=== PATIENT | female | born 1960 | race Caucasian/White ===

== ENCOUNTER 2020-05-12 08:05 | Outpatient (REF) | payer OTHER, MEDICAID, SELFPAY ==
--- NOTE | 2020-05-12 08:14 | XR_ITS ---
EXAMINATION: CR X-RAY SHOULDER 4 VIEW BILATERAL CLINICAL INFORMATION: Bilateral shoulder pain. COMPARISON: None TECHNIQUE: 4 views each of the bilateral shoulders were obtained. FINDINGS: There is no acute fracture or dislocation. The glenohumeral and acromio clavicular joints are intact. The soft tissues are unremarkable. XR/XR shoulder RT min 2V IMPRESSION: Unremarkable bilateral shoulders.
--- NOTE | 2020-05-12 08:14 | XR_ITS ---
EXAMINATION: CR X-RAY SHOULDER 4 VIEW BILATERAL CLINICAL INFORMATION: Bilateral shoulder pain. COMPARISON: None TECHNIQUE: 4 views each of the bilateral shoulders were obtained. FINDINGS: There is no acute fracture or dislocation. The glenohumeral and acromio clavicular joints are intact. The soft tissues are unremarkable. XR/XR shoulder LT min 2V IMPRESSION: Unremarkable bilateral shoulders.
[2020-05-12 08:57] LABS: Hematocrit 42.7 % (37-47); Hemoglobin 13.8 g/dl (12.0-16.0); Mean Corpuscular HGB Conc 32.3 g/dl (31.0-35.0); Mean Corpuscular Hemoglobin 29.6 pg (27.0-33.0); Mean Corpuscular Volume 91.4 fL (80-98); Mean Platelet Volume 9.7 fL (9.4-12.3); Platelet Count 310 X10*3/uL (160-400); Red Blood Count 4.67 X10*6/uL (4.20-5.50); Red Cell Distribution Width 12.7 % (11.0-16.0); White Blood Count 6.7 X10*3/uL (4.8-10.8)
[2020-05-12 09:21] LABS: Anion Gap 11 (12-20); Blood Urea Nitrogen 16 mg/dL (9-16); Calcium 9.5 mg/dL (8.4-10.2); Carbon Dioxide 28 mmol/L (22-29); Chloride 104 mmol/L (96-108); Cholesterol 293 mg/dL; Estimated Glomerular Filt Rate > 60; Glucose Random 103 mg/dL (60-115); HDL Cholesterol 59 mg/dL; LDL Cholesterol Calculated 199 mg/dl; Potassium 4.8 mmol/l (3.3-5.1); Sodium 138 mmol/L (135-145); Triglycerides 179 mg/dL
[2020-05-12 09:41] LABS: Thyroid Stimulating Hormone 1.21 uIU/mL (0.32-4.0)
== END 2020-05-12 08:06 | disposition home or self-care (01) ==
LOC: HO.LAB 08:05
PROVIDERS: PCP Internal Medicine; Visit Provider General Practice
DX: M25.511 Pain in right shoulder (principal); M25.512 Pain in left shoulder; E78.5 Hyperlipidemia, unspecified
CPT/HCPCS: 36415; 73030; 80048; 80061; 84443; 85027

== ENCOUNTER 2023-06-08 15:28 | Outpatient (REF) | payer OTHER, SELFPAY ==
--- NOTE | ~2023-06-08 | MM_ITS ---
EXAMINATION: MM SCREENING DIGITAL BREAST TOMOSYNTHESIS, BILATERAL WITH BREAST IMPLANTS CLINICAL INFORMATION: Screening. Asymptomatic. COMPARISON: Mammography: This study is compared with prior mammograms dating back to 2017. TECHNIQUE: Digital mammography is performed in craniocaudal and mediolateral oblique views along with computer-aided detection (CAD). Digital breast tomosynthesis is performed in implant-displaced craniocaudal and implant-displaced mediolateral oblique views along with computer-aided detection (CAD). Synthesized 2D images are generated from the tomosynthesis. FINDINGS: There are scattered areas of fibroglandular density (ACR BI-RADS breast composition Category b). There are mammographically intact, bilateral retropectoral breast implants. There are no significant masses, abnormal calcifications, or other abnormalities. There are few, bilateral benign calcifications which have been previously evaluated with magnification imaging in 2018. MM/MM tomosynthesis screen imp BI IMPRESSION: No mammographic evidence of malignancy. ASSESSMENT: BI-RADS BI-RADS 2 - Benign Findings RECOMMENDATION: Routine annual mammography screening. 1 year F/U This patient's information was entered into a reminder system with a target due date for their next mammogram.
== END 2023-06-08 15:29 | disposition home or self-care (01) ==
LOC: HO.MAMMO 15:28
PROVIDERS: PCP Internal Medicine; Visit Provider Internal Medicine
DX: Z12.31 Encounter for screening mammogram for malignant neoplasm of breast (principal)
CPT/HCPCS: 77063; 77067

== ENCOUNTER → 2023-06-08 15:45 | Outpatient (BNV) | payer OTHER, SELFPAY | PROVIDERS: PCP Internal Medicine; Visit Provider Radiology Diagnostic Radiology | DX: Z12.31 Encounter for screening mammogram for malignant neoplasm of breast (principal) | CPT/HCPCS: 77063; 77067 ==

== ENCOUNTER 2023-08-10 07:58 | Outpatient (REF) | payer OTHER, SELFPAY ==
[2023-08-10 12:08] LABS: Alanine Aminotransferase 26 U/L (0-31); Albumin Level 4.1 g/dL (3.5-5.0); Alkaline Phosphatase 61 U/L (39-117); Anion Gap 11 (12-20); Aspartate Amino Transferase 29 U/L (5-31); Bilirubin Total 0.5 mg/dL (0.0-1.0); Blood Urea Nitrogen 18 mg/dL (9-16); Calcium 9.4 mg/dL (8.4-10.2); Carbon Dioxide 27 mmol/L (22-29); Chloride 106 mmol/L (96-108); Cholesterol 265 mg/dL (<200); Estimated Glomerular Filt Rate > 60; Glucose Random 93 mg/dL (60-115); HDL Cholesterol 66 mg/dL (>40); LDL Cholesterol Calculated 175 mg/dL (<100); Potassium 4.6 mmol/L (3.3-5.1); Sodium 139 mmol/L (135-145); Total Protein 7.4 g/dL (6.5-8.0); Triglycerides 123 mg/dL (<150)
[2023-08-10 12:25] LABS: TSH reflex Free T4 1.86 uIU/mL (0.32-4.0); Vitamin D 25-OH Total 51.1 ng/mL (>30)
[2023-08-10 12:34] LABS: Reflex LDLD? No
== END 2023-08-10 07:59 | disposition home or self-care (01) ==
LOC: HO.HHCL 07:58
PROVIDERS: Visit Provider Internal Medicine
DX: E55.9 Vitamin D deficiency, unspecified (principal); M25.541 Pain in joints of right hand; M25.542 Pain in joints of left hand; E78.2 Mixed hyperlipidemia
CPT/HCPCS: 36415; 80053; 80061; 82306; 84443

== ENCOUNTER 2024-02-18 08:37 | Outpatient (REF) | payer OTHER, SELFPAY ==
[2024-02-18 11:49] LABS: Cholesterol 217 mg/dL (<200); HDL Cholesterol 62 mg/dL (>40); LDL Cholesterol Calculated 133 mg/dL (<100); Triglycerides 111 mg/dL (<150)
[2024-02-18 13:49] LABS: Reflex LDLD? No
== END 2024-02-18 08:38 | disposition home or self-care (01) ==
LOC: HO.HHCL 08:37
PROVIDERS: Visit Provider Internal Medicine
DX: E78.2 Mixed hyperlipidemia (principal)
CPT/HCPCS: 36415; 80061

== ENCOUNTER 2024-04-09 09:03 | Outpatient (REF) | payer OTHER, SELFPAY ==
--- NOTE | ~2024-04-09 | XR_ITS ---
EXAMINATION: XR HAND, RIGHT CLINICAL INFORMATION: Pain and weakness. COMPARISON: None available. TECHNIQUE: PA, lateral, and oblique views of the right hand. FINDINGS: Bony mineralization is normal. There is moderately severe arthritic change of the third distal interphalangeal joint, with joint space narrowing, mild angulation and periarticular calcifications. There is mild narrowing of the fourth and fifth distal interphalangeal joints. Minimal degenerative change is seen of the second and third distal interphalangeal joints. Small marginal erosions are noted of the second and third metacarpophalangeal joints. The proximal and distal carpal rows are intact. No fracture or dislocation is seen. There is mild soft tissue swelling of the fingers, without soft tissue gas or foreign body noted. XR/XR hand LT min 3V IMPRESSION: There are arthritic changes of the distal interphalangeal joints and of the second and third metacarpophalangeal joints. Small marginal erosions raise the possibility of rheumatoid arthritis, erosive osteoarthritis, psoriasis and gout. Please correlate clinically. No fracture or dislocation is seen. EXAMINATION: XR HAND, LEFT CLINICAL INFORMATION: Pain and weakness. COMPARISON: None available. TECHNIQUE: PA, lateral, and oblique views of the left hand. FINDINGS: Bony mineralization is normal. There is moderate to marked arthritic change of the second through fifth distal interphalangeal joints, with joint space narrowing and periarticular calcifications. There is mild angulation of the third distal interphalangeal joint, with a small central erosion. There is mild narrowing of the fifth proximal interphalangeal joint. The proximal and distal carpal rows are intact. There is no fracture or dislocation. There is mild soft tissue swelling of the fingers, without soft tissue gas or foreign body noted. IMPRESSION: As with the contralateral side, there are arthritic changes of several left interphalangeal joints, with a small central erosion at the third distal interphalangeal joint. No fracture or dislocation is seen. Electronically signed by: Jc Thomas MD 04/10/2024 11:33 AM EST
--- NOTE | ~2024-04-09 | XR_ITS ---
EXAMINATION: XR HAND, RIGHT CLINICAL INFORMATION: Pain and weakness. COMPARISON: None available. TECHNIQUE: PA, lateral, and oblique views of the right hand. FINDINGS: Bony mineralization is normal. There is moderately severe arthritic change of the third distal interphalangeal joint, with joint space narrowing, mild angulation and periarticular calcifications. There is mild narrowing of the fourth and fifth distal interphalangeal joints. Minimal degenerative change is seen of the second and third distal interphalangeal joints. Small marginal erosions are noted of the second and third metacarpophalangeal joints. The proximal and distal carpal rows are intact. No fracture or dislocation is seen. There is mild soft tissue swelling of the fingers, without soft tissue gas or foreign body noted. XR/XR hand RT min 3V IMPRESSION: There are arthritic changes of the distal interphalangeal joints and of the second and third metacarpophalangeal joints. Small marginal erosions raise the possibility of rheumatoid arthritis, erosive osteoarthritis, psoriasis and gout. Please correlate clinically. No fracture or dislocation is seen. EXAMINATION: XR HAND, LEFT CLINICAL INFORMATION: Pain and weakness. COMPARISON: None available. TECHNIQUE: PA, lateral, and oblique views of the left hand. FINDINGS: Bony mineralization is normal. There is moderate to marked arthritic change of the second through fifth distal interphalangeal joints, with joint space narrowing and periarticular calcifications. There is mild angulation of the third distal interphalangeal joint, with a small central erosion. There is mild narrowing of the fifth proximal interphalangeal joint. The proximal and distal carpal rows are intact. There is no fracture or dislocation. There is mild soft tissue swelling of the fingers, without soft tissue gas or foreign body noted. IMPRESSION: As with the contralateral side, there are arthritic changes of several left interphalangeal joints, with a small central erosion at the third distal interphalangeal joint. No fracture or dislocation is seen. Electronically signed by: Jc Thomas MD 04/10/2024 11:33 AM EST
== END 2024-04-09 09:04 | disposition home or self-care (01) ==
LOC: HO.HHCX 09:03
PROVIDERS: Visit Provider Internal Medicine
DX: M19.041 Primary osteoarthritis, right hand (principal); M19.042 Primary osteoarthritis, left hand; R35.1 Nocturia
CPT/HCPCS: 73130

== ENCOUNTER 2024-08-14 07:38 | Outpatient (RCR) | payer MEDICAID, SELFPAY ==
--- NOTE | 2024-07-17 15:23 | MHC.OT.EP ---
[address] [phone] Occupational Therapy Plan of Care Patient Name: Heather Downs Date of Evaluation: 07/17/24 Diagnosis: Bilateral hand arthritis Pain Location: R hand (primarily in DIP joints) 5/10 L hand (DIP joints) 3/10 Pain Score: 5 Pain Scale Used: Numeric (0 - 10) Aggravating Factors: Heavy cleaning, lifting Alleviating Factors: Rest, medication Assessment: Heather is a 63 y/o female referred to OT for bilateral hand arthritis. Patient presents with a five-year history of worsening bilateral hand pain, primarily in the DIP joints, with associated morning stiffness, arthritic nodules, and ulnar deviation of the middle finger DIP joints. Symptoms are consistent with osteoarthritis, as confirmed by imaging. Career Advisor strength is significantly reduced (R: 12#, L: 15#), impacting functional tasks such as grasping objects and fine motor coordination. The QuickDASH score of 54.5% indicates moderate to severe functional limitations. Pt would benefit from skilled OT to address limitations and improve hand function. Frequency and Duration: The patient will be seen 2x/wk for 4 weeks Short Term Goals: Decrease pain <2/10 in DIP joints through manual therapy, joint protection strategies, and thermal modalities IND w/ joint protection techniques and activity modification to minimize stress on affected joints Editor School Photograph Goals: Pain free with homemaking tasks Improve paper handler strength to at least 20# bilaterally to restore functional hand use Prevent further progression of deformity and maintain joint mobility and dexterity for daily activities Reduce QuickDASH score <25% Treatment Plan: Therapeutic Exercise Therapeutic Activity Home Exercise Program Patient Education ADL Training Paraffin Fluidotherapy MHP Joint Mobilization Soft Tissue Mobilization Electronically Signed By: An Cutler MS OTR/L Please Sign and return to therapist. Thank you once again for your referral.
--- NOTE | 2024-08-14 08:18 | MHC.OT.DC ---
[address] [phone] F: [phone] Occupational Therapy Discharge Note Patient Name: Heather Downs Provider: Mary Sanford Diagnosis: Bilateral hand arthritis Date of Surgery: Date of Evaluation: 07/17/24 Date of Discharge: Treatments to Date: 8 Cancellations to Date: No Shows to Date: Discharge Status: Achieved Goals Independent with HEP Discharge Summary: Pt tolerated therapy well today; she reports she is and will continue to be compliant w/ HEP and jt. protection techniques Electronically Signed By: Deb Mckinney OTR/L Reviewed/agree with student documentation: Therapist: Please Sign and return to therapist, thank you for your referral.
== END 2024-08-14 08:19 | disposition home or self-care (01) ==
LOC: HO.OT 07:38
PROVIDERS: PCP Internal Medicine; Visit Provider Internal Medicine
DX: M19.041 Primary osteoarthritis, right hand (principal); M19.042 Primary osteoarthritis, left hand
CPT/HCPCS: 97035; 97110; 97140; 97165; 97535

== ENCOUNTER 2024-08-19 10:56 | Outpatient (REF) | payer MEDICAID, SELFPAY ==
[2024-08-19 13:14] LABS: MANUAL DIFF FLAG NO
--- OUTSIDE RECORDS SUMMARY | 2024-08-19 13:20 | XMS_ITS | Referral Summary ---
Author Organization [facility] Address [address] [place] [address] Care Team Providers Care Cake Icer Name Role Phone aMry Sanford Primary Care Provider +1- [phone] Allergies No known active allergies Medications atorvastatin (LIPITOR) 40 mg tablet Take 40 mg by mouth once a day. Active calcium carbonate (TUMS) 200 mg calcium (500 mg) chewable tablet Chew and swallow 1 tablet by mouth once a day. Active ergocalciferol (VITAMIN D2) 1,250 mcg (50,000 unit) capsule Take 50,000 Units by mouth once a week. Active Active Problems Problem Noted Date Diagnosed Date OAB (overactive bladder) 07/07/2021 Mixed stress and urge urinary incontinence 07/07 Hypercholesteremia 01/03/2021 Uterine cancer 01/03/2021 Social History Tobacco Use Types Packs/Day Years Used Date Smoking Tobacco: Former Cigarettes 0.3 20 1 - 2015 Smokeless Tobacco: Never Alcohol Use Standard Drinks/Week Comments Not Currently 0 (1 standard drink = 0.6 oz pur e alcohol) Comments Unknown Sex and Gender Information Value Date Recorded Sex Assigned at Not on file Legal Sex Female 2:57 PM EDT Gender Identity Not on file Sexual Orientation Not on file 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
--- OUTSIDE RECORDS SUMMARY | 2024-08-19 13:20 | XMS_ITS | Encounter Summary ---
Author Organization [employer] Address [address] [place] [address] Care Team Providers Care Software Educator Name Role Phone Mary Sanford MD Primary Care Provider + Reason for Visit * Reason Comments Med Refill Encounter Details Date Type Department Care Team (Late st Contact Info) Description 04/01/2023 Refill [facility] [address] [place], [place] [phone] Mary Sanford MD [address] [place], [place] [phone] Acute pain of left knee; Lateral epicondylitis of left elbow Social History Tobacco Use Types Packs/Day Years Used Date Smoking Tobacco: Every Day Cigarettes Passive Smoke Exposure: Never Smokeless Tobacco: Never Alcohol Use Standard Drinks/Week Comments Not Currently 0 (1 standard drink = 0.6 oz pur e alcohol) Housing Stability Answer Date Recorded What is your housing situation today? I have óscar reza 02/26/[address] you li ve. Do you have problems with any of the following? None of the above 02/26/2023 Food Insecurity Answer Date Recorded Within the past 12 months, y ou worried that your food would run out before you got money to buy more: Never True 02/26/2023 Within the past 12 months,th e food you bought just didn't last and you didn't have enough money to get more: Never True Transportation Answer Date Recorded In the past 12 months, has l ack of transportation kept you from medical appts, meetings, work or from getting things needed for daily living? No 02/26/2023 Utilities Answer Date Recorded In the past 12 months, has t he electric, gas, oil or water company threatened to shut off services in your home? No 02/26/2023 Depression Answer Date Recorded Patient Health Questionnaire-2 Score 0 07/07/2022 Comments Unknown Sex and Gender Information Value Date Recorded Sex Assigned at Female 03/13/2022 10:31 AM EDT Legal Sex Female 10:31 AM EDT Gender Identity Female 03/13/2022 10:31 AM EDT Sexual Orientation Choose not to disclose 2021 10:31 AM EDT documented as of this encounter Plan of Treatment Upcoming Encounters Date Type Department Care Team (Late st Contact Info) Description 02/24/2025 1:00 PM EDT Office Visit [facility] [address] [place] [address] Lakesha Valenzuela [address] [place] [address] documented as of this encounter Visit Diagnoses Diagnosis Acute pain of left knee Lateral epicondylitis of left elbow documented in this encounter Care Teams Software Educator Relationship Specialty Start Date End Date Mary Sanford MD [address] [place] [address] PCP - General Family Medicine 05/14/18 documented as of this encounter
--- OUTSIDE RECORDS SUMMARY | 2024-08-19 13:20 | XMS_ITS | Encounter Summary ---
Author Organization [employer] Address [address] [place] [address] Care Team Providers Care Optometric Tech Name Role Phone Mary Sanford MD Primary Care Provider + Encounter Details Date Type Department Care Team (Late st Contact Info) Description 09/27/2023 Orders Only [facility] [address] [place], [place] [phone] Provider, MD Wes Social History Tobacco Use Types Packs/Day Years Used Date Smoking Tobacco: Every Day Cigarettes Passive Smoke Exposure: Never Smokeless Tobacco: Never Alcohol Use Standard Drinks/Week Comments Not Currently 0 (1 standard drink = 0.6 oz pur e alcohol) Depression Answer Date Recorded Patient Health Questionnaire-9 Score 0 08/13/2023 Patient Health Questionnaire-9 Score 0 08/13/2023 Last PHQ-9: Questionnaire Data Not on file 0 08/13/2023 Housing Stability Answer Date Recorded What is your housing situation today? I have óscar reza 08/02/[address] you li ve. Do you have problems with any of the following? None of the above 08/02/2023 Food Insecurity Answer Date Recorded Within the past 12 months, y ou worried that your food would run out before you got money to buy more: Never True 08/02/2023 Within the past 12 months,th e food you bought just didn't last and you didn't have enough money to get more: Never True Transportation Answer Date Recorded In the past 12 months, has l ack of transportation kept you from medical appts, meetings, work or from getting things needed for daily living? No 08/02/2023 Utilities Answer Date Recorded In the past 12 months, has t he electric, gas, oil or water company threatened to shut off services in your home? No 08/02/2023 Depression Answer Date Recorded Patient Health Questionnaire-2 Score 0 08/13/2023 Comments Unknown Sex and Gender Information Value [...] Description 02/24/2025 1:00 PM EDT Office Visit [facility] [address] [place] [address] Nicolas, Lakesha [address] [place] [address] documented as of this encounter Procedures Procedure Name Priority Date/Time Associated Diagnosis Comments HM COLONOSCOPY Routine 08/23/2018 8:34 AM EDT documented in this encounter Results * Hm Colonoscopy (08/23/2018 8:34 AM EDT) us Historical Provider HEALTH MAINTENANCE Final Result documented in this encounter Visit Diagnoses Not on filedocumented in this encounter Additional Health Concerns Assessment Noted Time PHQ-9 Depression Total Score: 0 08/13/19 24 3:54 PM EDT documented as of this encounter Care Teams Optometric Tech Relationship Specialty Start Date End Date Mary Sanford MD [address] [place] [address] PCP - General Family Medicine 05/14/18 documented as of this encounter
--- OUTSIDE RECORDS SUMMARY | 2024-08-19 13:20 | XMS_ITS | Clinical Summary ---
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 Not on file Not on file Last Filed Vital Signs Vital Sign Reading Time Taken Comments Blood Pressure 114/56 07/07/2021 1:00 PM EST Pulse 73 07/07/2021 1:00 PM EST Temperature - - Respiratory Rate - - Oxygen Saturation - - Inhaled Oxygen Concentration - - Weight - - Height - - Body Mass Index - - Plan of Treatment Health Maintenance Due Date Last Done Comments Cervical Cancer Screening 1960 Cologuard 1960 Colon Cancer Screening 1960 Colonoscopy 1960 FOBT / Fit Test 1960 HIV Screening 1960 HPV and Pap Smear 1960 Pap Smear 1960 Sigmoidoscopy 1960 DTaP,Tdap,and Td Vaccines (1 - Tdap) 1982 Pneumococcal Vaccine: 50+ Ye ars (1 of 1 - PCV) 2010 Zoster Vaccines (1 of 2) 2010 COVID-19 Vaccine (1 - 2023-2 5 season) 2024 Alcohol/Substance Use Screening 05/14/2024 Influenza Vaccine (Season Ended) 2025 RSV Vaccine (60+ years old a nd patients) (1 - 1-dose 75+ series) 11/23/2035 Hepatitis B Vaccines Aged Out No long er eligible based on patient's age to complete this topic Insurance [facility] /FREE CARE [facility] Care Teams Shuttle Fitting Supervisor Relationship Specialty Start Date End Date Mary Sanford [address] [place] [id number] PCP - General Internal Medicine 12/17/20
--- OUTSIDE RECORDS SUMMARY | 2024-08-19 13:20 | XMS_ITS | Clinical Summary ---
Author Organization [employer] Address [address] [facility] 7[address] [place] [address] Care Team Providers Care Psychological Assistant Name Role Phone Mary Sanfrod MD Primary Care Provider + Allergies No known active allergies Medications acetaminophen (Tylenol 8 Hour) 650 MG ER tablet Take 1 tablet by mouth every 8 (eight) hours. 1 Active Diclofenac Sodium 1 % gelIndications:Art hralgia of both hands APPLY 2g TOPICALLY THREE TIMES DAILY TO AFFECTED AREA(S) 100 g 2 4 Active atorvastatin (Lipitor) 20 MG tabletIndications: Mixed hyperlipidemia TAKE 1 TABLET BY MOUTH EVERY DAY IN THE MORNING 90 tablet 2 4 Active FLUoxetine (PROzac) 20 MG capsuleIndications :Recurrent major depression in full remission (CMS/HCC) TAKE 1 CAPSULE BY MOUTH EVERY DAY IN THE MORNING 90 capsule 3 4 Active meloxicam (Mobic) 15 MG tablet Take 1 tablet (15 mg) by mouth Once per day. 30 tablet 11 4 025 Active calcium carbonate EX (Tums E-X) 750 MG chewable tablet Chew 1 tablet (750 mg) 2 times daily. 60 tablet 11 4 025 Active Problems Problem Noted Date Diagnosed Date Arthritis of both hands 04/08/2024 Assessment & Plan (04/08/2024 1:28 PM EST): Most likely OA, rule out inflammatory arthritis. Order labs and XR. Take Meloxicam + Diclofenac gel QHS x 2 weeks. FU with me in 4 weeks. Acute pain of left knee 07/07/2022 Assessment & Plan (07/07/2022 1:50 PM EST): r/o meniscal or ligmant compromise use meloxicam daily x 1 week and tylenol PRN Lateral epicondylitis of left elbow 07/07/2022 Assessment & Plan (08/13/2023 4:35 PM EDT): - Restart Meloxicam x2 weeks + Tylenol prn. - Declines PT at this time, - Follow up prn Assessment & Plan (07/07/2022 1:50 PM EST): Recomended to use an elbow strap especially for house chores. Use meloxicam daily 1 week and tylenol PRN. Reconsult prn. May need referral to OT. Clinical gingival health on intact periodontium 04/25/2022 Increased appetite 04/17/2022 Assessment & Plan (04/17/2022 11:03 AM EST): It could be related to anxiety, weather changes, meds? Encouraged to keep healthy snacks at home, increase water intake. Check labs prior to next appt. FU in , consider changing meds if needed (?fluoxetine). Dry skin dermatitis 04/17/2022 Assessment & Plan (04/17/2022 11:04 AM EST): Use cerave soap and face cleanser regularly Avoid scented soaps and Moisturizers Use cerave or Cetaphil cream daily Mixed hyperlipidemia 04/17/2022 Assessment & Plan (04/08/2024 1:30 PM EST): Significantly improved, last month LDL went down to 137 and HDL is above 60. Continue Lipitor 20 mg and FU lipids in 1 year. We discussed re rx options. Recommended moderate amount of exercise and increase consumption of fruit, vegetables, fish and high fiber foods. Should decrease consumption of highly saturated fats or trans fats. Pt agreed to have Influenza immunization. Assessment & Plan (08/13/2023 4:34 PM EDT): Uncontrolled, could be related to noncompliance with diet. Emphasized the importance of low fat and carb meals and increase exercise. Continue Lipitor 20 mg and follow up Lipid labs in 6 months Assessment & Plan (04/30/2023 10:02 AM EST): On atorvastatin, low fat diet FU lipid in 6m Assessment & Plan (04/17/2022 11:06 AM EST): Continue Atorvastatin 20mg Check lipids prior to next appt Recommended moderate amount of exercise and increased consumption of fruit, vegetables, fish and high fiber foods. We discussed about avoiding consumption of highly saturated fats or trans fats. Vitamin D deficiency 04/10/2022 Assessment & Plan (08/13/2023 4:35 PM EDT): - Resolved - D/C vitamin D and continue Calcium+ D + K - Counseled about increasing outdoor exercise daily. Assessment & Plan (04/30/2023 10:01 AM EST): She's off vit D supplementation Encouraged daily outdoor exercise for at least 15min Check Vit D levels in 6m Assessment & Plan (04/17/2022 11:00 AM EST): Counseled re outdoor exercise , sun exposure for at least 15min/d Check Vit D levels Stress incontinence of urine 04/10/2022 Assessment & Plan (04/17/2022 10:59 AM EST): Seen by Urology at [facility], didn't tolerate Myrbetriq Recommended Kegel's exercises and call Urology for pelvic floor PT referral. Recurrent major depression in full remission Assessment & Plan (04/30/2023 10:01 AM EST): Doing well on fluoxetine, no change in meds Encouraged outdoor exercise, Healthy diet. She has crisis number and is able to reach out for safety. Assessment & Plan (04/17/2022 11:02 AM EST): Doing well on fluoxetine, has some increased appetite Counseled to increase exercise daily, wants to go to the gym, Continue fluoxetine Check FBS/A1c with next set of labs Consider changing fluoxetine if increased appetite/weight continues to be an issue Blood in urine 04/10/2022 Backache 04/10/2022 Acute maxillary sinusitis 09/26/2018 Visual impairment 06/21/2017 Pain in elbow 06/21/2017 Lipoma of abdominal wall 06/21/2017 Encounters Date Type Department Care Team Description 08/19/2024 9:45 AM EDT Office Visit [facility] [address] [place] [phone] Mary Sanford MD Vitamin D deficiency (Primary Dx); Mixed hyperlipidemia; Recurrent major depression in full remission (CMS/HCC); Encounter for immunization 08/19/2024 Travel 08/11/2024 Patient Outreach [facility] [address] [place] [phone] Mary Sanford MD Pre-visit Planning (SDOH screening negative and tobacco screening negative) 07/25/2024 Population Health Risk Score [facility] Department [address] [place] [address] [phone] Provider, Population Health Generic 06/18/2024 Telephone [facility] [address] [place] [phone] Mary Sanford MD Referral 06/11/2024 Telephone [facility] [address] [place] [phone] Mary Sanford MD August recall from Last 3 Months Immunizations Name Administration Dates Next Due Influenza injectable quadrivalent preservative f ree 01/31/2023,05/24/2020 Influenza, seasonal, injectable, preservative fr ee 04/08/2024,04/17/2022 Moderna Covid-19 Vaccine 12+ 10/06/2020,09/09/19 21 Pfizer Covid-19 Vaccine 12+ 08/19/2024 Pfizer Covid-19 Vaccine 12+ Bivalent 04/17/2022 Tdap 05/24/2020 Zoster, Recombinant 08/17/2020,05/24/2020 Family History Medical History Relation Name Comments Glaucoma Father Relation Name Status Comments Father Social History Tobacco Use Types Packs/Day Years Used Date Smoking Tobacco: Some Days Cigarettes Passive Smoke Exposure: Current Smokeless Tobacco: Never Tobacco Cessation:Ready to Q uit: Not Asked; Counseling Given: Not Answered Alcohol Use Standard Drinks/Week Comments Yes 0 (1 standard drink = 0.6 oz pur e alcohol) rare wine Depression Answer Date Recorded Patient Health Questionnaire-9 Score 0 08/19/2024 Patient Health Questionnaire-9 Score 0 08/19/2024 Last PHQ-9: Questionnaire Data Not on file 0 08/19/2024 Housing Stability Answer Date Recorded What is your housing situation today? I have óscar reza 08/11/[address] you li ve. Do you have problems with any of the following? None of the above 08/11/2024 Food Insecurity Answer Date Recorded Within the past 12 months, y ou worried that your food would run out before you got money to buy more: Never True 08/11/2024 Within the past 12 months,th e food you bought just didn't last and you didn't have enough money to get more: Never True Transportation Answer Date Recorded In the past 12 months, has l ack of transportation kept you from medical appts, meetings, work or from getting things needed for daily living? No 08/11/2024 Utilities Answer Date Recorded In the past 12 months, has t he electric, gas, oil or water company threatened to shut off services in your home? No 08/11/2024 Depression Answer Date Recorded Patient Health Questionnaire-2 Score 0 08/19/2024 Internet Access Answer Date Recorded Internet Access Q1 No 08/19/2024 Internet Access Q2 Not on file 08/19/2024 Comments Unknown Sex and Gender Information Value Date Recorded Sex Assigned at Female 03/13/2022 10:31 AM EDT Legal Sex Female 10:31 AM EDT Gender Identity Female 03/13/2022 10:31 AM EDT Sexual Orientation Choose not to disclose 2021 10:31 AM EDT Last Filed Vital Signs Vital Sign Reading Time Taken Comments Blood Pressure 133/65 08/19/2024 9:48 AM EDT Pulse 64 08/19/2024 9:48 AM EDT Temperature 35.6 ??C (96 ??F) 08/19/2024 9:48 AM EDT Respiratory Rate 20 08/19/2024 9:48 AM EDT Oxygen Saturation 98% 04/08/2024 11:47 AM EST Inhaled Oxygen Concentration - - Weight 62.1 kg (137 lb) 08/19/2024 9:48 AM EDT Height 154.9 cm (5' 1 ) 08/19/2024 9:48 AM EDT Body Mass Index 25.89 08/19/2024 9:48 AM EDT Plan of Treatment Upcoming Encounters Date Type Department Care Team (Late st Contact Info) Description 02/24/2025 1:00 PM EDT Office Visit [facility] [address] [place] [address] Nicolas, Lakesha [address] [place] [address] Health Maintenance Due Date Last Done Comments CT Colonography 1960 FIT DNA/Cologuard 1960 FIT 1960 FOBT 1960 HIV Screening 1960 Sigmoidoscopy 1960 Hepatitis C Screening 1978 Pneumococcal Vaccine: 50+ Years (1 of 2 - PCV) 11/23/1979 Pap Smear 1981 Cervical Cancer Screening 1990 HPV/Cotest 1990 Dental Oral Exam 10/25/2022 04/25/2022 Dental Prophylaxis 10/25/2022 04/25/2022 Dental X-Ray: Bitewings 04/26/2023 04/25/2022 Mammogram 06/08/2024 06/08/2023, 11/12, 11/30/2017, Additional history exists Dental X-Ray: Full Mouth 04/26/2025 04/25/2022 Alcohol/Substance Use Screening 08/19/2025 08/19/2024 Depression Screening 08/19/2025 08/19/2024, 08/20/19 25 SDOH Screening 08/19/2025 08/19/2024 Tobacco Screening 08/19/2025 08/19/2024 Colonoscopy 08/23/2028 08/23/2018 Colorectal Cancer Screening 08/23/2028 Lipid Panel 02/17/2029 02/18/2024, 07/13, 07/06/2022, Additional history exists DTaP/Tdap/Td Vaccines (2 - Td or Tdap) 05/24/2030 05/24/2020 RSV Patients and Patients Aged 60 years or older (1 - 1-dose 75+ series) 11/23/2035 Zoster Vaccines Completed 08/17/2020, 05/24/2020 Influenza Vaccine Completed 04/08/2024, , 04/17/2022, Additional history exists COVID-19 Vaccine Completed 08/19/2024, 09/2021, 10/06/2020, Additional history exists HIB Vaccines Aged Out No longer eligi ble based on patient's age to complete this topic HPV Vaccines Aged Out No longer eligi ble based on patient's age to complete this topic Hepatitis A Vaccines Aged Out No long er eligible based on patient's age to complete this topic Hepatitis B Vaccines Aged Out No long er eligible based on patient's age to complete this topic IPV Vaccines Aged Out No longer eligi ble based on patient's age to complete this topic Meningococcal Vaccine Aged Out No eric eriberto eligible based on patient's age to complete this topic RSV under 20 months Aged Out No longe r eligible based on patient's age to complete this topic Rotavirus Vaccines Aged Out No longer eligible based on patient's age to complete this topic Procedures Procedure Name Priority Date/Time Associated Diagnosis Comments LIPID PANEL WITH REFLEX TO DIRECT LDL Routine 02/18/2024 8:45 AM EDT Mixed hyperlipidemia BI MAMMOGRAM SCREEN W LEOBARDO W IMPLANTS JIMMY Routine 06/08/2023 3:50 PM EST Full PROPHYLAXIS - ADULT Routine 04/25/2022 8:00 AM EST INTRAORAL - COMPLETE SERIES OF RADIOGRAPHIC IMAGES Routine 04/25/2022 8:00 AM EST PERIODIC ORAL EVALUATION - ESTABLISHED PATIENT Routine 04/25/2022 8:00 AM EST HM COLONOSCOPY Routine 08/23/2018 8:34 AM EDT from Last 3 Months or Most Recently Relevant to Health Maintenance Results * (ABNORMAL) Lipid Panel with Reflex to Direct LDL (02/18/2024 8:45 AM EDT) Triglycerides 111 <150 mg/dL [facility] Comment:Desirable Triglyceri de: less than 150 mg/dLBorderline High Triglyceride 150-199 mg/dLHigh Triglyceride: 200-499 mg/dLVery High Triglyceride: greater than or equal to 5OO mg/dL Cholesterol 217(H) <200 mg/dL [facility] Comment:Desirable Cholestero l: less than 200 mg/dLBorderline High Cholesterol: 200-239 mg/dLHigh Cholesterol: greater than 239 mg/dL LDL Cholesterol Calculated 133(H) <100 mg/dL [facility] Comment:Desirable LDL: less than 100 mg/dLNear Optimal/Above Optimal LDL: 110- 129 mg/dLBorderline High LDL: 130-159 mg/dLHigh LDL: 160-189 mg/dLVery High LDL: greater than or equal to 190 mg/dL HDL Cholesterol 62 >40 mg/dL [facility] Comment:Desirable HDL: great er than 40 mg/dL Note: This HDL assay may give artificially low results in patients with liver disease. Blood 02/18/2024 8:45 AM EDT 02/18/2024 11:15 AM EDT us Mary Sanford MD LAB BLOOD ORDERABLES Fin al Result [facility] [address] [place] [phone] * BI Mammogram Screen w/ Leobardo w/ Implants Jimmy (06/08/2023 3:50 PM EST) Anatomical Region Laterality Modality Mammography 06/08/2023 3:50 PM EST Narrative 06/25/2023 6:27 AM EST ? [facility] ? [address] ?[place] [address] ? Mammography Report ? Signed ? Patient: Aurelio Downs,Heather Salas ? MR#: [id number] ? : 1960 ?Acct:[id number] ? Age/Sex: 62 / F ?ADM Date: 01/26/24 ? Loc: HO.MAMMO ? Attending Dr: Mary Sanford MD ? Ordering Physician: Mary Sanford MD ?Results: 2Be ?? nign Findings ? Date of Service: 06/08/23 ?Follow Up: 1 Year From Orig ?? inal Mammogram ? Procedure(s): MM tomosynthesis screen imp BI ?? Accession Number(s): [id number] ? cc: Mary Sanford MD ? EXAMINATION: ?? MM SCREENING DIGITAL BREAST TOMOSYNTHESIS, BILATERAL WITH BREAST ?? IMPLANTS ? CLINICAL INFORMATION: ? Screening. Asymptomatic. ? COMPARISON: ?? Mammography: This study is compared with prior mammograms dating back ?? to 2017. ? TECHNIQUE: ?? Digital mammography is performed in craniocaudal and mediolateral ?? oblique views along with computer-aided detection (CAD). Digital breast ?? tomosynthesis is performed in implant-displaced craniocaudal and ?? implant-displaced mediolateral oblique views along with computer-aided ?? detection (CAD). Synthesized 2D images are generated from the ?? tomosynthesis. ? FINDINGS: ?? There are scattered areas of fibroglandular density (ACR BI-RADS breast ?? composition Category b). ? There are mammographically intact, bilateral retropectoral breast ?? implants. ? There are no significant masses, abnormal calcifications, or other ?? abnormalities. ? There are few, bilateral benign calcifications which have been ?? previously evaluated with magnification imaging in 2018. ? MM/MM tomosynthesis screen imp BI ?? IMPRESSION: ?? No mammographic evidence of malignancy. ? ASSESSMENT: ? BI-RADS BI-RADS 2 - Benign Findings ? RECOMMENDATION: ?? Routine annual mammography screening. ? 1 year F/U ? This patient's information was entered into a reminder system with a ?? target due date for their next mammogram. ? Dictated By: ?Yari Max MD ? Signed By: ?<Electronically signed by Yari Max MD in OV> ? 06/25/23622 ? DD/ 1550 ? TD/TT: ? Hemodialysis Rn: ? Procedure Note Donotuseinterpreter, Image - 06/25/2023 [facility] [address] [place] [address] Mammography Report Signed Patient: Heather Davis MR#: [id number] : 1Acct:[id number] Age/Sex: 62 / FADM Date: 06/08/23 Loc: HO.MAMMO Attending Dr: Mary Sanford MD Ordering Physician: Mary Sanford MDResults: 2Be nign Findings Date of Service: 06/08/23Follow Up: 1 Year From Orig inal Mammogram Procedure(s): MM tomosynthesis screen imp BI Accession Number(s): [id number] cc: Mary Sanford MD EXAMINATION: MM SCREENING DIGITAL BREAST TOMOSYNTHESIS, BILATERAL WITH BREAST IMPLANTS CLINICAL INFORMATION: Screening. Asymptomatic. COMPARISON: Mammography: This study is compared with prior mammograms dating back to 2017. TECHNIQUE: Digital mammography is performed in craniocaudal and mediolateral oblique views along with computer-aided detection (CAD). Digital breast tomosynthesis is performed in implant-displaced craniocaudal and implant-displaced mediolateral oblique views along with computer-aided detection (CAD). Synthesized 2D images are generated from the tomosynthesis. FINDINGS: There are scattered areas of fibroglandular density (ACR BI-RADS breast composition Category b). There are mammographically intact, bilateral retropectoral breast implants. There are no significant masses, abnormal calcifications, or other abnormalities. There are few, bilateral benign calcifications which have been previously evaluated with magnification imaging in 2018. MM/MM tomosynthesis screen imp BI IMPRESSION: No mammographic evidence of malignancy. ASSESSMENT: BI-RADS BI-RADS 2 - Benign Findings RECOMMENDATION: Routine annual mammography screening. 1 year F/U This patient's information was entered into a reminder system with a target due date for their next mammogram. Dictated By: Yari Max MD Signed By: <Electronically signed by Yari Max MD in OV> 06/25/23 0623 DD/ 1550 TD/TT: Hemodialysis Rn: us Mary Sanford MD IMG BI PROCEDURES Final Result * Hm Colonoscopy (08/23/2018 8:34 AM EDT) us Historical Provider HEALTH MAINTENANCE Final Result from Last 3 Months or Most Recently Relevant to Health Maintenance Insurance [facility] C3 DENTAL-[facility] MEDICAID LIMITED ADULT DENTAL - [facility] FULL (MEDICAID) * Guarantor: Heather Davis Account Type Relation to Patient Date of Phone Billing Address Personal/[place] [address] [place] [address] Care Teams Psychological Assistant Relationship Specialty Start Date End Date Mary Sanford MD [address] [place] [phone] PCP - General Family Medicine 05/14/18
--- OUTSIDE RECORDS SUMMARY | 2024-08-19 13:20 | XMS_ITS | Encounter Summary ---
Author Organization [employer] Address [address] [place] [address] Care Team Providers Care Vice President Planning Name Role Phone Mary Sanford MD Primary Care Provider + Encounter Details Date Type Department Care Team (Latest Contact Info) Description 08/19/2024 Travel Social History Tobacco Use Types Packs/Day Years Used Date Smoking Tobacco: Some Days Cigarettes Passive Smoke Exposure: Current Smokeless Tobacco: Never Alcohol Use Standard Drinks/Week Comments Yes 0 [...] Description 02/24/2025 1:00 PM EDT Office Visit [facility] [address] [place] [address] Nicolas, Lakesha [address] [place] [address] documented as of this encounter Visit Diagnoses Not on filedocumented in this encounter Additional Health Concerns Assessment Noted Time PHQ-9 Depression Total Score: 0 08/20/19 25 9:49 AM EDT documented as of this encounter Care Teams Vice President Planning Relationship Specialty Start Date End Date Mary Sanford MD [address] [place] [address] PCP - General Family Medicine 05/14/18 documented as of this encounter
--- OUTSIDE RECORDS SUMMARY | 2024-08-19 13:20 | XMS_ITS | Encounter Summary ---
Author Organization [employer] Address [address] [address] [address] [place] [address] Care Team Providers Care Rough Rice Tender Name Role Phone Mary Sanford MD Primary Care Provider + Encounter Details Date Type Department Care Team (Late st Contact Info) Description 08/19/2024 9:45 AM EDT Office Visit [facility] [address] [place], [place] [phone] Mary Sanford MD [address] [place], [place] [phone] Vitamin D deficiency (Primary Dx); Mixed hyperlipidemia; Recurrent major depression in full remission (CMS/HCC); Encounter for immunization Social History Tobacco Use Types Packs/Day Years [...] AM EDT documented as of this encounter Last Filed Vital Signs Vital Sign Reading Time Taken Comments Blood Pressure 133/65 08/19/2024 9:48 AM EDT Pulse 64 08/19/2024 9:48 AM EDT Temperature 35.6 ??C (96 ??F) 08/19/2024 9:48 AM EDT Respiratory Rate 20 08/19/2024 9:48 AM EDT Oxygen Saturation - - Inhaled Oxygen Concentration - - Weight 62.1 kg (137 lb) 08/19/2024 9:48 AM EDT Height 154.9 cm (5' 1 ) 08/19/2024 9:48 AM EDT Body Mass Index 25.89 08/19/2024 9:48 AM EDT documented in this encounter Plan of Treatment Upcoming Encounters Date Type Department Care Team (Late st Contact Info) Description 02/24/2025 1:00 PM EDT Office Visit [facility] ADULT DENTAL [address] [place] [address] Glenn Valenzuelaaris [address] [place] [address] documented as of this encounter Visit Diagnoses Diagnosis Vitamin D deficiency- Primary Mixed hyperlipidemia Recurrent major depression in full remission ([facility]) Encounter for immunization documented in this encounter Additional Health Concerns Assessment Noted Time PHQ-9 Depression Total Score: 0 08/20/19 25 9:49 AM EDT documented as of this encounter Care Teams Rough Rice Tender Relationship Specialty Start Date End Date Mary Sanford MD [address] [place] [address] PCP - General Family Medicine 05/14/18 documented as of this encounter
--- OUTSIDE RECORDS SUMMARY | 2024-08-19 13:20 | XMS_ITS | Encounter Summary ---
Author Organization [employer] [facility] Address [address] [facility] [address] [place] [address] Care Team Providers Care Genetic Counselor Name Role Phone Mary Sanford MD Primary Care Provider + Encounter Details Date Type Department Care Team (Late Contact Info) Description 04/17/2022 Abstract [facility] ADULT DENT[facility] [address] [place] [address] Dental, Provider, DDS Social History Tobacco Use Types Packs/Day Years Used Date Smoking Tobacco: Some Days Cigarettes Smokeless Tobacco: Never Alcohol Use Standard Drinks/Week Comments Not Currently 0 (1 standard drink = 0.6 oz pur e alcohol) Comments Unknown Sex and Gender Information Value Date Recorded Sex Assigned at Female 03/13/2022 10:31 AM EDT Legal Sex Female 10:31 AM EDT Gender Identity Female 03/13/2022 10:31 AM EDT Sexual Orientation Choose not to disclose 2021 10:31 AM EDT COVID-19 Exposure Response Date Recorded In the last 10 days, have yo u been in contact with someone who was confirmed or suspected to have Coronavirus/COVID-19? No / Unsure 04/17/2022 9:16 AM EST documented as of this encounter Plan of Treatment Upcoming Encounters Date Type Department Care Team (Late Contact Info) Description 02/24/2025 1:00 PM EDT Office Visit [facility] ADULT DENTAL [address] [place], [place] [phone] Lakesha Valenzuela [address] [place] [address] documented as of this encounter Procedures Procedure Name Priority Date/Time Associated Diagnosis Comments 13 PREFABRICATED POST AND CORE IN ADDITION TO CROWN Routine 04/17/2022 12:00 AM EST 4 PREFABRICATED POST AND CORE IN ADDITION TO CROWN Routine 04/17/2022 12:00 AM EST 29 MOD COMPOSITE FILLING Routine 12:00 AM EST 12 MOD COMPOSITE FILLING Routine 12:00 AM EST 10 ML COMPOSITE FILLING Routine 04/17/20 12:00 AM EST 9 DL COMPOSITE FILLING Routine 12:00 AM EST 8 DIL COMPOSITE FILLING Routine 04/17/20 12:00 AM EST 7 ML COMPOSITE FILLING Routine 12:00 AM EST 5 MOD COMPOSITE FILLING Routine 04/17/20 12:00 AM EST 31 MOD AMALGAM FILLING Routine 12:00 AM EST 30 MOD AMALGAM FILLING Routine 12:00 AM EST 18 MODB AMALGAM FILLING Routine 04/17/20 12:00 AM EST 14 O AMALGAM FILLING Routine 04/17/2022 12:00 AM EST 3 MO AMALGAM FILLING Routine 04/17/2022 12:00 AM EST 32 EXTRACTION Routine 04/17/2022 12:00 AM EST 19 EXTRACTION Routine 04/17/2022 12:00 AM EST 17 EXTRACTION Routine 04/17/2022 12:00 AM EST 16 EXTRACTION Routine 04/17/2022 12:00 AM EST 15 EXTRACTION Routine 04/17/2022 12:00 AM EST 1 EXTRACTION Routine 04/17/2022 12:00 AM EST 4 ROOT CANAL Routine 04/17/2022 12:00 AM EST 30 ROOT CANAL Routine 04/17/2022 12:00 AM EST 13 ROOT CANAL Routine 04/17/2022 12:00 AM EST 13 PFM CROWN Routine 04/17/2022 12:00 AM EST 4 PFM CROWN Routine 04/17/2022 12:00 AM EST documented in this encounter Visit Diagnoses Not on filedocumented in this encounter Care Teams Genetic Counselor Relationship Specialty Start Date End Date Mary Sanford MD [address] [place] [phone] PCP - General Family Medicine 05/14/18 documented as of this encounter
[2024-08-19 13:28] LABS: Basophils Percent Auto 0.5 % (0-2); Eosinophils Absolute Auto 0.1 X10*3/uL (0.0-0.4); Eosinophils Percent Auto 1.6 % (0-4); Hematocrit 38.3 % (37.0-47.0); Hemoglobin 12.8 g/dl (12.0-16.0); Imm Gran Abs Auto 0.01 X10*3/uL (0.00-0.03); Imm Gran Pct Auto 0.2 % (0.0-0.4); Lymphocytes Absolute Auto 2.2 X10*3/uL (1.2-4.9); Lymphocytes Percent Auto 36.4 % (20-40); Mean Corpuscular HGB Conc 33.4 g/dl (31.0-35.0); Mean Corpuscular Volume 89.7 fL (80.0-98.0); Mean Platelet Volume 10.9 fL (9.4-12.3); Monocytes Absolute Auto 0.5 X10*3/uL (0.1-1.2); Monocytes Percent Auto 7.6 % (2-11); Neutrophils Absolute Auto 3.3 x10*3/uL (2.0-8.3); Neutrophils Percent Auto 53.7 % (45-73); Platelet Count 279 X10*3/uL (160-400); Red Blood Count 4.27 X10*6/uL (4.20-5.50); Red Cell Distribution Width 13.1 % (11.0-16.0); White Blood Count 6.1 X10*3/uL (4.8-10.8)
[2024-08-19 13:59] LABS: Rheumatoid Factor < 13.0 IU/mL (<15.0)
[2024-08-19 14:06] LABS: Erythrocyte Sedimentation Rate 23 MM/HR (0-20)
[2024-08-19 14:20] LABS: C Reactive Protein 0.36 mg/dL (< or = 0.50); Uric Acid 3.4 mg/dL (2.4-5.7)
[2024-08-20 05:05] LABS: HBc Num1 0.07 S/CO (0.00-0.79); HBsAGNum1 0.27 S/CO (0.00-0.99); Hepatitis A Antibody IgM 0.19 Index (0-0.79); Hepatitis B Core Antibody Nonreactive (Nonreactive); Hepatitis B Surface Antigen Negative (Negative); ~HepC Num1 0.15 S/CO (0.00-0.79); ~Hepatitis A Antibody IgM Nonreactive (Nonreactive); ~Hepatitis B Surface Antibody REACTIVE (Nonreactive); ~Hepatitis C Antibody Nonreactive (Nonreactive)
[2024-08-26 11:34] LABS: Anti Nuclear Antibody Screen NEGATIVE (NEGATIVE)
== END 2024-08-19 10:57 | disposition home or self-care (01) ==
LOC: HO.HHCL 10:56
PROVIDERS: Visit Provider Internal Medicine
DX: M19.041 Primary osteoarthritis, right hand (principal); M19.042 Primary osteoarthritis, left hand
CPT/HCPCS: 36415; 84550; 85025; 85652; 86038; 86140; 86431; 86704; 86706; 86709; 86803; 87340

== ENCOUNTER 2024-10-20 09:08 | Outpatient (REF) | payer MEDICAID, SELFPAY ==
--- OUTSIDE RECORDS SUMMARY | 2024-10-20 09:34 | XMS_ITS | Encounter Summary ---
Author Organization [employer] Address [address] [place] [address] Care Team Providers Care Superintendent Job Name Role Phone Mary Sanford MD Primary Care Provider + Encounter Details Date Type Department Care Team ([facility] Contact Info) Description 04/17/2022 Abstract [facility] ADULT DENTAL [address] [place], [place] [phone] Dental, Provider, DDS Social History Tobacco Use [...] Upcoming Encounters Date Type Department Care Team ([facility] Contact Info) Description 12/03/2024 10:15 AM EDT Procedure Visit [facility] MEDICINE [address] [place] [address] Mary Sanford MD [address] [place], [place] [phone] 02/24/2025 1:00 PM EDT Office Visit [facility] ADULT DENTAL [address] [place] [address] Lakesha Valenzuela [address] [place] [address] documented as of this encounter Procedures Procedure Name Priority Date/Time Associated Diagnosis Comments 13 PREFABRICATED POST AND CORE IN ADDITION TO CROWN Routine 04/17/2022 12:00 AM EST 4 PREFABRICATED POST AND CORE IN ADDITION TO CROWN Routine 04/17/2022 12:00 AM EST 29 MOD COMPOSITE FILLING Routine 12:00 AM EST 12 MOD COMPOSITE FILLING Routine 12:00 AM EST 10 ML COMPOSITE FILLING Routine 04/17/20 22 12:00 AM EST 9 DL COMPOSITE FILLING Routine 2 12:00 AM EST 8 DIL COMPOSITE FILLING Routine 04/17/20 22 12:00 AM EST 7 ML COMPOSITE FILLING Routine 2 12:00 AM EST 5 MOD COMPOSITE FILLING Routine 04/17/20 22 12:00 AM EST 31 MOD AMALGAM FILLING Routine 2 12:00 AM EST 30 MOD AMALGAM FILLING Routine 12:00 AM EST 18 MODB AMALGAM FILLING Routine 04/17/20 22 12:00 AM EST 14 O AMALGAM FILLING [...] on filedocumented in this encounter Care Teams Superintendent Job Relationship Specialty Start Date End Date Mary Sanford MD [address] [place] [phone] PCP - General Family Medicine 05/14/18 documented as of this encounter
== END 2024-10-20 09:09 | disposition home or self-care (01) ==
LOC: HO.MAMMO 09:08
PROVIDERS: PCP Internal Medicine; Visit Provider Internal Medicine
DX: Z12.31 Encounter for screening mammogram for malignant neoplasm of breast (principal)
CPT/HCPCS: 77063; 77067

== ENCOUNTER → 2024-10-20 09:30 | Outpatient (BNV) | payer MEDICAID, SELFPAY | PROVIDERS: PCP Internal Medicine; Visit Provider Internal Medicine | DX: Z12.31 Encounter for screening mammogram for malignant neoplasm of breast (principal) | CPT/HCPCS: 77063; 77067 ==

== ENCOUNTER 2024-12-08 09:03 | Outpatient (REF) | payer MEDICAID, SELFPAY ==
[2024-12-03 15:02] LABS: Bacterial Vaginosis PCR NEGATIVE (Negative); Candida Group PCR NOT DETECTED (Not Detect); Candida glab krusei PCR NOT DETECTED (Not Detect); Trichomonas vaginalis PCR NOT DETECTED (Not Detect)
[2024-12-03 15:34] LABS: CT PCR NOT DETECTED (Not Detect.); NG PCR NOT DETECTED (Not Detect.)
--- OUTSIDE RECORDS SUMMARY | 2024-12-08 09:44 | XMS_ITS | Referral Summary ---
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 [place] [address] Care Teams Wool Tamper Relationship Specialty Start Date End Date Mary Sanford [address] [place] [phone] PCP - General Internal Medicine 12/17/20
--- OUTSIDE RECORDS SUMMARY | 2024-12-08 09:44 | XMS_ITS | Clinical Summary ---
Author Organization Located Within [facility] Address [address] [place] [phone] Phone Care Team Providers Care Rose Grading Supervisor Name Role Phone Mary Sanford MD Primary Care Provider + Allergies No known active allergies Medications atorvastatin (LIPITOR) 20 MG tablet Take 20 mg by mouth daily. 07/14/2021 Active FLUoxetine (PROZAC) 20 MG capsule Take 20 mg by mouth every morning. 07/14/2021 Active Active Problems No known active problems Social History Tobacco Use Types Packs/Day Years Used Date Smoking Tobacco: Every Day Smokeless Tobacco: Never Education Answer Date Recorded Are you interested in more education? Not on nikhil e 09/08/2022 Are you concerned about learning? Not on file 09/08/2022 No 09/08/2022 No 09/08/2022 Digital Access Answer Date Recorded No 10/10/2022 No 10/10/2022 Reliable internet access at home? Not on file 10/10/2022 Device with a working camera? Not on file Comments Unknown Sex and Gender Information Value Date Recorded Sex Assigned at Not on file Legal Sex Female 2:31 PM EST Gender Identity Not on file Sexual Orientation Not on file Last Filed Vital Signs Vital Sign Reading Time Taken Comments Blood Pressure 123/72 08/07/2021 12:05 PM EDT Pulse 56 08/07/2021 12:05 PM EDT Temperature 36.6 C (97.8 F) 08/07/2021 12:05 PM EDT Respiratory Rate 16 08/07/2021 12:05 PM EDT Oxygen Saturation 95% 08/07/2021 12:05 PM EDT Inhaled Oxygen Concentration - - Weight 66.7 kg (147 lb) 08/07/2021 12:05 PM EDT Height 155 cm (5' 1.02 ) 08/07/2021 12:05 PM EDT Body Mass Index 27.75 08/07/2021 12:05 PM EDT Plan of Treatment Health Maintenance Due Date Last Done Comments Adult Td,Tdap Booster 1960 LIPID PANEL 1960 DEPRESSION SCREENING 1972 SMOKING Hx and SMOKELESS TOB ACCO SCREENING 1973 HEPATITIS C SCREENING 1978 HIV ONE-TIME SCREENING (18-6 5 YEARS) 1978 PNEUMOCOCCAL VACCINES (50+ y ears) (1 of 2 - PCV) 11/23/1979 PAP SMEAR 1981 MAMMOGRAM 2000 COLOGUARD 2005 COLONOSCOPY 2005 COLORECTAL CANCER SCREENING 2005 FIT TEST 2005 FOBT 2005 SIGMOIDOSCOPY 2005 VIRTUAL COLONOSCOPY 2005 ZOSTER VACCINES (1 of 2) 2010 COVID-19 VACCINE ( - 2023-2 5 season) 2024 RSV VACCINE (1 - 1-dose 75+ series) 11/23/2035 HEPATITIS A VACCINES Aged Out No long er eligible based on patient's age to complete this topic HIB VACCINES Aged Out No longer eligi ble based on patient's age to complete this topic MENINGOCOCCAL VACCINES (ACWY) Aged Out No longer eligible based on patient's age to complete this topic MENINGOCOCCAL VACCINES (B) Aged Out N o longer eligible based on patient's age to complete this topic Medical Devices Not on file Insurance [facility] MARK NSPG PCP RAJENDRA GREER [facility] [place] [facility] [employer] [place] [address] [place] [address] [facility] HEALTH SAFETY NET FULL [facility] SAFETY NET FULL WELLSENSE NON NSPG PCP [facility] FULL WELLSENSE NON NSPG PCP S[facility] CONNECTOR[facility]ARE [facility] SAFETY NET [facility]ULL [facility]CP [facility] [place] [address] [place] [address] HEALTH SAFETY NET FULL WELLSENSE NON NSPG PCP S[facility] CONNECTOR[facility]ARE [facility] LIMITED [facility] FULL WELLSENSE NON NSPG PCP S[facility]ARITY CONNE[facility]ARE [facility] LIMITED [facility] FULL [facility] PCP [facility] Member Subscriber Plan / Payer (Ef fective 2020-Present) Name:Heather Carey Relation to Subscriber:Self Name:Heather Carey Payer ID:[id number] Group ID:Not on file Type:O Address: [address] [facility] SAFETY NET FULL Care Teams Rose Grading Supervisor Relationship Specialty Start Date End Date Mary Sanford MD [address] [place] [address] [address] [place] [phone] PCP - General Internal Medicine 05/13/20 Additional Source Comments The information contained in this document represents components of the legal health record. It is not the complete legal health record.Located Within [facility]
--- OUTSIDE RECORDS SUMMARY | 2024-12-08 09:44 | XMS_ITS | Encounter Summary ---
Author Organization [employer] Address [address] [place] [address] Care Team Providers Care Corporate Safety Coordinator Name Role Phone Mary Sanford MD Primary Care Provider + Encounter Details Date Type Department Care Team (Late Contact Info) Description 04/17/[address] [facility] ADULT DENTAL [address] [place], [place] [phone] Dental, Provider, DDS Social History Tobacco Use [...] Description 02/24/2025 1:00 PM EDT Office Visit [facility] ADULT DENTAL [address] [place], [place] [phone] Lakesha Valenzuela [address] [place], [place] [phone] documented as of this encounter Procedures Procedure [...] on filedocumented in this encounter Care Teams Corporate Safety Coordinator Relationship Specialty Start Date End Date Mary Sanford MD [address] [place] [phone] PCP - General Family Medicine 05/14/18 documented as of this encounter
== END 2024-12-08 09:04 | disposition home or self-care (01) ==
LOC: HO.LNP 09:03
PROVIDERS: Visit Provider Internal Medicine
DX: Z01.419 Encounter for gynecological examination (general) (routine) without abnormal findings (principal)
CPT/HCPCS: 81515; 87491; 87591; 87626; 88175